=== PATIENT | female | born 1970 | race Caucasian/White ===

== ENCOUNTER 2016-07-29 21:38 | Observation (INO) | payer SELFPAY ==
[2016-07-29] MEDS ORDERED: MORPHINE SULFATE 5 MG/ML PFS IVP ONE ×2 (21:44→23:56)
[2016-07-29] MEDS ORDERED: 0.9 % SODIUM CHLORIDE 1000ML 1,000 ML IV SCH (21:45)
--- NOTE | 2016-07-29 21:48 | Emergency Department Record ---
History of Present Illness - General Chief Complaint: Chest Pain Stated Complaint: CHEST PAIN Time Seen by Provider: 07/29/16 21:44 Source: Patient Mode of Arrival: Wheelchair Limitations: No limitations - History of Present Illness Initial Comments: 46 yo female presents to ED with a CC of sudden onset left sided chest pain radiating down her LUE. Patient reports that her symptoms came on at rest, denies history of previous symptoms. Patient denies fevers, chills, cough, or recent illness. Patient denies health problems at her baseline, but nuno report she is a current smoker and reports family history CT 40's (Aunt). Patient received (2) full strength ASA prior to arrival. MD Complaint: Chest pain Onset/Timin -: Minutes(s) Onset: During rest Pain Location: Substernal, Left chest Pain Radiation: LUE Severity: Moderate Consistency: Constant Improves With: Nothing Worsens With: Nothing Treatments Prior to Arrival: Aspirin - Related Data On Oral Contraceptives: No Home Medications Medication Instructions Recorded Confirmed Last Taken No Home Med [NO HOME MEDS] 07/29/16 07/29/16 Unknown Allergies Allergy/AdvReac Type Severity Reaction Status Date / Time No Known Drug Allergies Allergy Verified 07/29/16 21:45 Review of Systems Constitutional: Denies: Chills, Fever, Malaise, Night sweats Eyes: Denies: Eye discharge, Eye pain ENT: Denies: Congestion, Ear pain, Epistaxis Respiratory: Denies: Cough, Dyspnea Cardiovascular: Reports: Chest pain. Denies: Dyspnea on exertion, Palpitations Endocrine: Denies: Fatigue, Heat or cold intolerance Gastrointestinal: Denies: Abdominal pain, Nausea, Vomiting Genitourinary: Denies: Dysuria, Frequency, Hematuria Musculoskeletal: Denies: Arthralgia, Back pain, Gout, Joint swelling Skin: Denies: Bruising, Change in color, Rash Neurological: Denies: Abnormal gait, Confusion, Headache, Seizure Psychiatric: Denies: Anxiety, Auditory hallucinations Hematological/Lymphatic: Denies: Anemia Physical Exam - General General Appearance: Alert, Oriented x3, Cooperative, Moderate distress Limitations: No limitations - Head Head exam: Atraumatic, Normocephalic, Normal inspection Head exam detail: negative: Abrasion, Contusion, Rai's sign, General tenderness, Hematoma, Laceration - Eye Eye exam: Normal appearance. negative: Conjunctival injection, Periorbital swelling, Periorbital tenderness, Scleral icterus - ENT Ear exam: negative: Auricular hematoma, Auricular trauma Nasal Exam: negative: Active bleeding, Discharge, Dried blood, Foreign body Mouth exam: negative: Drooling, Laceration, Muffled voice, Tongue elevation - Neck Neck exam: Normal inspection. negative: Meningismus, Tenderness - Respiratory Respiratory exam: Normal lung sounds bilaterally. negative: Respiratory distress, Rhonchi, Stridor, Wheezes - Cardiovascular Cardiovascular Exam: Regular rate, Normal rhythm, Normal heart sounds - GI/Abdominal GI/Abdominal exam: Soft. negative: Rebound, Rigid, Tenderness - Rectal Rectal exam: Deferred - exam: Deferred - Extremities Extremities exam: Normal inspection. negative: Calf tenderness, Pedal edema, Tenderness - Back Back exam: Reports: Normal inspection. Denies: CVA tenderness (R), CVA tenderness (L) - Neurological Neurological exam: Alert, Normal gait, Oriented X3 - Psychiatric Psychiatric exam: Normal affect, Normal mood - Skin Skin exam: Normal color. negative: Abrasion Type of lesion: negative: abrasion Course - Reevaluation(s) Reevaluation #1: 07/29/16 21:48 EKG: NSR 60 Normal axis, normal intervals No acute ST-T wave changes Reevaluation #2: 07/29/16 22:04 repeat EKG: NSR 70 Normal axis, normal intervals No acute ST-T wave changes Reevaluation #3: 07/29/16 22:27 Labs reviewed, WBC 17.7, labs are otherwise grossly unremarkable for an acute process. Patient's pain was doiwn to 5/10 after 3rd Niotro, Morphine given with pain improvement to 2/10. Reevaluation #4: 07/29/16 22:35 CXR: No acute process. Reevaluation #5: 07/29/16 22:57 EKG #3: NSR 57 Normal axis, normal intervals No acute ST-T wave changes are present. 23:55 Repeat Troponin ordered from the ED, repeat order for Morphine ordered for pain symptoms. 00:40 Repeat Troponin is negative for myocardial damage. Patient sent to CT for for PE evaluation. 1:26 CTA Chest negative for PE/Dissection. Will admit for further cardiac evaluation. 6:55 AM Case was discussed with Dr. Oliveira, will accept admission. 07/29/16 23:55 07/30/16 00:40 07/30/16 01:26 07/30/16 06:49 Medical Decision Making - Lab Data Result diagrams: 07/29/16 21:50 07/29/16 21:50 Disposition Disposition: Admit Clinical Impression: Chest pain Qualifiers: Chest pain type: unspecified Qualified Code(s): R07.9 - Chest pain, unspecified Disposition: Still a Patient at [facility] Decision to Admit: Admit from ER Decision to Admit Date: 07/30/16 Decision to Admit Time: 01: Condition: (1) Good Time of Disposition: 01:28
[2016-07-29 21:55] LABS: BASO % 0.3 % (0-6); EOS % 1.9 % (0-6); GRAN % 60.1 % (47-80); HEMATOCRIT 38.3 % (35.0-47.0); HEMOGLOBIN 12.8 gm/dl (11.6-16.0); LYMPH % 30.3 % (16-45); MEAN CELL VOLUME 93.6 fl (81-97); MEAN CORPUSCULAR HEMOGLOBIN 31.3 pg (27-33); MEAN CORPUSCULAR HGB CONC 33.4 g/dl (32-36); MEAN PLATELET VOLUME 10.4 fl (7.4-10.4); MONO % 7.4 % (0-9); PLATELET COUNT 284 K/uL (130-400); RED BLOOD COUNT 4.09 M/uL (3.80-5.40); RED CELL DISTRIBUTION WIDTH 14.9 % (11.5-14.5); WHITE BLOOD COUNT W/O DIFF 17.7 K/uL (4.2-12.2)
[2016-07-29] MEDS: NITROGLYCERIN 0.4MG SL TABLET #25 BTL SL PRN ×3 (21:59→22:13)
[2016-07-29 22:05] LABS: ALB/GLOB RATIO 1.4 (1.1-1.8); ALBUMIN 4.2 gm/dL (3.5-5.0); ALKALINE PHOSPHATASE 85 U/L (38-126); ALT/SGPT 24 U/L (9-52); ANION GAP 12.8 (7-16); AST/SGOT 21 U/L (14-36); BILIRUBIN,TOTAL 0.15 mg/dL (0.2-1.3); BLOOD UREA NITROGEN 11 mg/dL (7-17); CARBON DIOXIDE 23.2 mmol/L (22-30); CREATINE PHOSPHOKINASE 164 U/L (30-135); CREATININE 0.7 mg/dL (0.52-1.04); EST GLOMERULAR FILTRATION RATE > 60 ml/min; GLUCOSE,RANDOM 93 mg/dL (70-110); TOTAL PROTEIN 7.1 gm/dL (6.3-8.2)
[2016-07-29 22:10] LABS: CKMB < 1.0 ng/mL (0-4.3); TROPONIN I < 0.050 ng/mL (0.0-0.4)
[2016-07-29] MEDS ORDERED: KETOROLAC 30 MG/ML VIAL IVP ONE (23:18)
[2016-07-30] MEDS ORDERED: NITROGLYCERIN/D5W 50 MG in DEXTROSE 5 % IN WATER 1 BAG IV SCH ×12 (00:15→09:46)
[2016-07-30] MEDS ORDERED: 0.9 % SODIUM CHLORIDE 1000ML 1,000 ML IV PRN (02:27)
[2016-07-30] MEDS ORDERED: KETOROLAC 30 MG/ML VIAL IVP ONE (07:55)
[2016-07-30] MEDS ORDERED: ACETAMINOPHEN 500 MG TABLET PO PRN (07:56)
[2016-07-30] MEDS ORDERED: HYDROCODONE/APAP 5/325MG TABLET PO PRN (07:57)
--- NOTE | 2016-07-30 10:15 | History and Physical Report ---
CHIEF COMPLAINT: Sharp chest pain on the left side of her chest. She denies any radiation into the arm or neck. HISTORY OF PRESENT ILLNESS: She stated that the chest pain started at 9:30 p.m. last night and was very severe. She took two aspirin at home and came to the emergency department. She was evaluated by Dr. Sevilla who started her on nitroglycerin sublingual times three which did not seem to help the pain according to the patient. The morphine seemed to work better for her pain than the nitroglycerin. She was placed on a nitroglycerin drip and was admitted to the hospital for serial cardiac enzymes and serial EKGs. The EKG, in looking at it last night, showed no acute ST T-wave changes. The EKG this morning again showed no acute ST T-wave changes. There was a CT angiogram of the chest to rule out pulmonary embolus. There was no evidence of a pulmonary embolus. No aortic dissection or aneurysm. She states that the pain came on while watching television. Nothing seemed to make it better or worse. It was severe , a 10, when she came to the emergency room. Currently her pain is at a 2. She denies eating anything greasy or fatty. She had dinner at about 4:00 p.m. She is under stress with her significant other. She started crying when I asked her about stress, and she admitted to having problems with her significant other. She did not want to talk about it. PAST MEDICAL HISTORY: Negative. PAST SURGICAL HISTORY: Negative. The patient states that she has not seen a doctor in 10 years. Her last doctor was in [place], and she moved from [place] to [place] in 2006. MEDICATIONS ON ADMISSION: She did admit to nursing that she smoked a heavy amount of marijuana. No home medications recorded. She denies taking any medication. She occasionally uses ibuprofen two or three tablets p.r.n. ALLERGIES: No known allergies. FAMILY/PSYCHOSOCIAL HISTORY: She smokes one pack of cigarettes per day. I advised her to stop smoking. She denies any alcohol or drug use besides marijuana. She actually says she uses a fair amount of marijuana. She had an aunt who had a heart problem. REVIEW OF SYSTEMS: HEENT: She had a cold two weeks ago, but that has resolved. She has an occasional cough and some wheezing when she coughs. Cardiovascular: See the Chief Complaint. She does have chest pain, sharp in nature, in the left chest area. Respiratory: She denies being short of breath, but she smokes one pack of cigarettes per day. When she coughed while I was examining her, she had some wheezing with the cough. Gastrointestinal: No nausea, vomiting, diarrhea, black stools, or bloody stools. Genitourinary: No dysuria, hematuria, frequency, or burning on urination. 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 She has had back problems in the past, but that seems to have resolved with her new job. It is the lower back area, mostly muscular in nature. Neurologic: No cerebrovascular accident, paralysis, or paraesthesias. Gynecologic: She has had nocturia times one for years. She has not had an abnormal mammogram or abnormal pap ever, but she has not seen a doctor in 10 years. Endocrine: No diabetes or thyroid disease. No change in weight, polyuria, or polydipsia. Integument: No rash, ulcers, changing moles, or yellow skin. PHYSICAL EXAMINATION: General: Height is 5 feet. Weight is 140 pounds. Vital Signs: Temperature is 98.5, pulse is 65, blood pressure is 111/69, respiratory rate is 14, pulse oximetry is 99% on room air. HEENT: Pupils are equal, round, and reactive to light and accommodation. Extraocular muscles are intact. The throat is clear. The nose is clear. The tympanic membranes are cortes. Neck: The neck is supple. No jugular venous distension. No hepatojugular reflex. No carotid bruit. The thyroid is smooth. Cardiovascular: Regular rate and rhythm without murmurs, clicks, rubs, or gallops. Respiratory: She has a little bit of a wheeze when she takes a deep breath. She has a cough with a deep breath. She states that this is a smoker's cough. Abdomen: Soft and nontender. No hepatosplenomegaly. No masses. No tenderness. Bowel sounds are active. No bruit. Extremities: No pitting edema. No cyanosis. No clubbing. Full range of motion. Peripheral pulses are good. Breasts, Gynecological, and Rectal Examinations: Deferred. Neurological Examination: Cranial nerves II through XII are intact. No gross defect. Sensation is normal. Strength is normal. Deep tendon reflexes are equal bilaterally. Babinski is negative. Mental Status: Alert and oriented times three. IMPRESSIONS: 1. Sharp left-sided chest pain. 2. Nitroglycerin drip is currently on. Will titrate off. She has a headache from that. 3. Rule out atypical chest pain. Two sets of troponins were negative. 4. Rule out musculoskeletal chest pain. 5. Early chronic obstructive pulmonary disease with a wheezy type cough. PLAN: Cardiology consult with Dr. Hernandez. Will also start Toradol and [place] and titrate off the nitroglycerin drip and convert to oral pain medication versus intravenous morphine. Armin Oliveira D.O. Date Time JOB NUMBER: [id number] MTDD
--- NOTE | 2016-07-30 15:56 | Discharge Note ---
Discharge Note - Date Date of Discharge Note: 07/30/16 Disposition: Home, Self-Care Condition: (1) Good Additional Instructions: follow up with Dr. Oliveira in 2 weeks Prescriptions: Naproxen [Naprosyn] 500 mg PO Q12H #30 tab.dr Forms: Patient Portal Access Activity at Discharge: Increase Activity as Tolerated
--- NOTE | 2016-07-30 18:15 | Discharge Summary ---
DATE OF DISCHARGE: 07/30/2016. DISCHARGE DIAGNOSES: 1. Chest pain. 2. Musculoskeletal chest pain. 3. Myocardial infarction ruled out. No significant coronary artery disease seen by stress testing. 4. Early chronic obstructive pulmonary disease. 5. Tobacco use disorder. ATTENDING PHYSICIAN: Armin Oliveira D.O. REASON FOR HOSPITALIZATION: This 46-year-old female developed sharp left-sided chest pain while watching television. She came to the emergency department. She took two aspirin at home and nitroglycerin times three sublingual. Nitroglycerin drip. Dr. Sevilla saw her in the emergency department. Cardiac enzymes were negative. EKGs were negative. She had a stress test with Dr. David lucio and a cardiology consult. SIGNIFICANT FINDINGS: LABORATORY DATA: The troponin-I was negative at 0.05. This was a new troponin test. CK total was 164. Bilirubin was 0.15 which is low. White count was 17, 700, hemoglobin was 12.8. DIAGNOSTIC DATA: A CT angiogram was negative for a pulmonary embolus, dissection, or aneurysm. The chest x-ray was negative. EKG showed no acute changes. Normal sinus rhythm. THERAPY PROVIDED: The patient was given intravenous fluids, nitroglycerin drip , and morphine. HOSPITAL COURSE: The patient improved, except she did still have some sharp chest pain and also a headache from the nitroglycerin drip. CONDITION AT DISCHARGE: Much improved. DISCHARGE INSTRUCTIONS: Follow up with Dr. Oliveira in two weeks or sooner if any problems. Naprosyn 500 mg b.i.d. Heat to the chest. Activity as tolerated. Armin Oliveira D.O. Date Time JOB NUMBER: [id number] MTDD
--- NOTE | 2016-07-31 15:30 | Medical Records Consult ---
DATE OF CONSULTATION: 07/30/16 HISTORY: Eli Oneill is a 46-year-old female with no previous cardiac history. She does not take any medication. She does give a history of trying a new batch of marijuana on the day of admission to the hospital. She had sudden severe left-sided chest discomfort, which lasted about ten minutes. She states it was 10 out of 10. She drove herself to the Emergency Room at [facility]. The resting electrocardiogram was completely normal. All enzymes were negative including troponin and CPK. She was given sublingual Nitroglycerine without relief of the discomfort. The Nitroglycerine did cause her to have a headache. She was seen by myself the following day. It was obvious that the chest discomfort was noncardiac based on clinical history, enzymes, and electrocardiogram. I did place her on the treadmill and she was able to exercise to a high level with appropriate heart rate and blood pressure response. She had no symptoms. No ST or T-wave changes. Based on this, her chest discomfort is noncardiac. There is no evidence of cardiac-induced ischemia. She is okay for discharge. Further history has been well-documented by Dr. Oliveira. PHYSICAL EXAMINATION: GENERAL: A well-nourished, well-hydrated female in no acute distress. LUNGS: Clear to auscultation in all listening posts. HEART: Heart sounds were clear. First and second sounds normal. No S3. No S4. She had no murmurs. ABDOMEN: Soft without masses. Good peripheral pulses. No evidence of peripheral edema. IMPRESSION: PRECORDIAL DISCOMFORT, NONCARDIAC IN ETIOLOGY. RECOMMENDATION: Based on the history, the physical, the enzymes, and her treadmill exercise test, the patient is safe for discharge. Davin Hernandez D.O. Date & Time JOB NUMBER: [id number] MTDD
== END 2016-07-30 16:20 | disposition home or self-care (01) ==
LOC: ER 21:38 → MEDSURG 07-30 01:58
PROVIDERS: ADMIT Emergency Medicine; ATTEND Emergency Medicine
DX: R07.9 Chest pain, unspecified (principal); J44.9 Chronic obstructive pulmonary disease, unspecified; F17.210 Nicotine dependence, cigarettes, uncomplicated
CPT/HCPCS: 99285 ×2; 96374; 96375; 82550; 85025; 82553; 84484 ×2; 80053; 71010; 71275; 94760; 93005 ×2; 93017; 93010; G0378; Q9967; J1885 ×2; J2270 ×2; 99220; J7030

== ENCOUNTER 2019-01-20 07:23 | Emergency (ER) | payer SELFPAY ==
[2019-01-20] MEDS ORDERED: 0.9 % SODIUM CHLORIDE 1,000 ML BAG IV ONE (07:55)
[2019-01-20] MEDS ORDERED: KETOROLAC 30 MG/ML VIAL IVP ONE (07:55)
[2019-01-20 07:59] LABS: URINE APPEARANCE CLEAR; URINE BILIRUBIN NEGATIVE (NEGATIVE); URINE BLOOD NEGATIVE (NEGATIVE); URINE COLOR YELLOW; URINE GLUCOSE (UA) NEGATIVE (NEGATIVE); URINE KETONE NEGATIVE (NEGATIVE); URINE LEUKOCYTE ESTERASE NEGATIVE (NEGATIVE); URINE NITRITE NEGATIVE (NEGATIVE); URINE PROTEIN NEGATIVE (NEGATIVE); URINE UROBILINOGEN 0.2 E.U./dL (0.20 - 1.00)
[2019-01-20 08:23] LABS: ABSOLUTE NEUTROPHIL COUNT 8.85; BASO % 0.5 % (0-6); EOS % 0.7 % (0-6); GRAN % 74.1 % (47-80); HEMATOCRIT 45.8 % (35.0-47.0); HEMOGLOBIN 15.2 gm/dl (11.6-16.0); LYMPH % 19.7 % (16-45); MEAN CELL VOLUME 94.8 fl (81-97); MEAN CORPUSCULAR HEMOGLOBIN 31.5 pg (27-33); MEAN CORPUSCULAR HGB CONC 33.2 g/dl (32-36); MEAN PLATELET VOLUME 11.2 fl (7.4-10.4); PLATELET COUNT 339 K/uL (130-400); RED BLOOD COUNT 4.83 M/uL (3.80-5.40); RED CELL DISTRIBUTION WIDTH 13.7 % (11.5-14.5)
[2019-01-20] MEDS ORDERED: ORPHENADRINE CITRATE 60MG/2ML VIAL IM ONE (08:29)
--- NOTE | 2019-01-20 08:33 | Emergency Department Record ---
History of Present Illness - General Chief Complaint: Back Pain/Injury Stated Complaint: BACK PAIN Time Seen by Provider: 01/20/19 07:46 Source: Patient Mode of Arrival: Ambulatory Limitations: No limitations - History of Present Illness Initial Comments: pt has had a crampy feeling in her l flank for 2 days. it is constant and made worse by movement. no problems w urination Complaint: Back pain Onset/Timin -: Days(s) Similar Symptoms Previously: No Place: Home Severity: Severe Severity scale (1-10): 10 Consistency: Constant Context: Unknown Associated Symptoms: Denies other symptoms - Related Data Home Medications Medication Instructions Recorded Confirmed Last Taken Ibuprofen [Motrin 400Mg] 400 mg PO Q8H PRN 01/20/19 01/20/19 01/19/19 Previous Rx's Medication Instructions Recorded Cyclobenzaprine HCl [Flexeril] 10 mg PO TID #10 tablet 01/20/19 Hydrocodone/Acetaminophen [[place] 1 each PO Q6HR #7 tablet 01/20/19 5-325 Tablet] Ibuprofen [Motrin] 800 mg PO Q8H PRN #20 tab 01/20/19 Allergies Allergy/AdvReac Type Severity Reaction Status Date / Time No Known Drug Allergies Allergy Verified 07/29/16 21:45 Travel Screening - Travel/Exposure Within Last 30 Days Have you traveled within the last 30 days?: Yes Location Detail:: [place], [place] - Travel/Exposure Within Last Year Have you traveled outside the [place] in the last year?: No - Additonal Travel Details Have you been exposed to anyone with a communicable illness?: No - Travel Symptoms Symptom Screening: None Review of Systems Reviewed: No additional complaints except as noted below Constitutional: Reports: As per HPI. Denies: Chills, Fever, Malaise, Night sweats, Weakness, Weight change Eyes: Reports: As per HPI. Denies: Eye discharge, Eye pain, Photophobia, Vision change ENT: Reports: As per HPI. Denies: Congestion, Dental pain, Ear pain, Epistaxis, Hearing loss, Throat pain Respiratory: Reports: As per HPI. Denies: Cough, Dyspnea, Hemoptysis, Stridor, Wheezes Cardiovascular: Reports: As per HPI. Denies: Arrhythmia, Chest pain, Dyspnea on exertion, Edema, Murmurs, Orthopnea, Palpitations, Paroxysmal nocturnal dyspnea, Rheumatic Fever, Syncope Endocrine: Reports: As per HPI. Denies: Fatigue, Heat or cold intolerance, Polydipsia, Polyuria Gastrointestinal: Reports: As per HPI. Denies: Abdominal pain, Constipation, Diarrhea, Hematemesis, Hematochezia, Melena, Nausea, Vomiting Genitourinary: Reports: As per HPI. Denies: Abnormal menses, Discharge, Dyspareunia, Dysuria, Frequency, Hematuria, Incontinence, Retention, Urgency Musculoskeletal: Reports: As per HPI, Back pain. Denies: Arthralgia, Gout, Joint swelling, Myalgia, Neck pain Skin: Reports: As per HPI. Denies: Bruising, Change in color, Change in hair/nails, Lesions, Pruritus, Rash Neurological: Reports: As per HPI. Denies: Abnormal gait, Confusion, Headache, Numbness, Paresthesias, Seizure, Tingling, Tremors, Vertigo, Weakness Psychiatric: Reports: As per HPI. Denies: Anxiety, Auditory hallucinations, Depression, Homicidal thoughts, Suicidal thoughts, Visual hallucinations Hematological/Lymphatic: Reports: As per HPI. Denies: Anemia, Blood Clots, Easy bleeding, Easy bruising, Swollen glands Past Medical History - SOCIAL HISTORY Smoking Status: Current some day smoker Alcohol Use: None Drug Use: None - RESPIRATORY Hx Respiratory Disorders: No - CARDIOVASCULAR Hx Cardio Disorders: No - NEURO Hx Neuro Disorders: No - GI Hx GI Disorders: No - Hx Genitourinary Disorders: No - ENDOCRINE Hx Endocrine Disorders: No - MUSCULOSKELETAL Hx Musculoskeletal Disorders: Yes Comment:: muscle cramps - PSYCH Hx Psych Problems: No - HEMATOLOGY/ONCOLOGY Hx Hematology/Oncology Disorders: No Family Medical History Any Significant Family History?: No Physical Exam - General General Appearance: Alert, Oriented x3, Cooperative, Mild distress - Head Head exam: Normal inspection - Eye Eye exam: Normal appearance, PERRL, EOMI Pupils: Normal accommodation - ENT ENT exam: Normal exam, Mucous membranes moist, Normal external ear exam, Normal orophraynx Ear exam: Normal external inspection. negative: External canal tenderness Nasal Exam: Normal inspection. negative: Discharge, Sinus tenderness Mouth exam: Normal external inspection, Tongue normal Teeth exam: Normal inspection. negative: Dental caries Throat exam: Normal inspection. negative: Tonsillar erythema, Tonsillar exudate - Neck Neck exam: Normal inspection, Full ROM. negative: Tenderness - Respiratory Respiratory exam: Normal lung sounds bilaterally. negative: Respiratory distress - Cardiovascular Cardiovascular Exam: Normal rhythm, Normal heart sounds, Tachycardia - GI/Abdominal GI/Abdominal exam: Soft, Normal bowel sounds. negative: Tenderness - Rectal Rectal exam: Deferred - exam: Deferred - Extremities Extremities exam: Normal inspection, Full ROM, Normal capillary refill. negative: Tenderness - Back Back exam: Reports: CVA tenderness (L), Full ROM, Tenderness. Denies: Muscle spasm, Rash noted - Neurological Neurological exam: Alert, CN II-XII intact, Normal gait, Oriented X3 - Psychiatric Psychiatric exam: Normal affect, Normal mood - Skin Skin exam: Dry, Intact, Normal color, Warm Course Vital Signs 01/20/19 07:28 Temperature 98.6 F Pulse Rate 119 H Respiratory 20 Rate Blood Pressure 155/112 Pulse Ox 98 - Reevaluation(s) Reevaluation #1: 01/20/19 10:54 ct showed lesion on kidney, us showed the same w recommendations of further Medical Decision Making - Lab Data Result diagrams: 01/20/19 07:39 01/20/19 07:39 Lab Results 01/20/19 01/20/19 01/20/19 Range/Units 07:39 Unknown Unknown WBC 12.0 (4.2-12.2) K/uL RBC 4.83 (3.80-5.40) M/uL Hgb 15.2 (11.6-16.0) gm/dl Hct 45.8 (35.0-47.0) % MCV 94.8 (81-97) fl MCH 31.5 (27-33) pg MCHC 33.2 (32-36) g/dl RDW 13.7 (11.5-14.5) % Plt Count 339 (130-400) K/uL MPV 11.2 H (7.4-10.4) fl Gran % 74.1 (47-80) % Lymphocytes % 19.7 (16-45) % Monocytes % 5.0 (0-9) % Eosinophils % 0.7 (0-6) % Basophils % 0.5 (0-6) % Absolute Neutrophils 8.85 Urine Color Yellow Urine Appearance Clear Urine pH 6.5 (5.0-8.0) Ur Specific [place] <= 1.005 (1.002-1.030) Urine Protein Negative (NEGATIVE) Urine Glucose (UA) Negative (NEGATIVE) Urine Ketones Negative (NEGATIVE) Urine Blood Negative (NEGATIVE) Urine Nitrite Negative (NEGATIVE) Urine Bilirubin Negative (NEGATIVE) Urine Urobilinogen 0.2 (0.20 - 1.00) E.U./dL Ur Leukocyte Esterase Negative (NEGATIVE) Urine HCG, Qual Negative (NEGATIVE) Disposition Disposition: Discharge Clinical Impression: Left flank pain, Right kidney mass Disposition: Home, Self-Care Condition: (1) Good Instructions: Flank Pain (ED), Kidney Cyst (ED) Additional Instructions: follow up with family doctor. return sooner if worse. have repeat ultra sound in [address] with contrast to further assess r kidney mass. do this without fail to check to see if its a cyst and to rule out malignancy Prescriptions: Hydrocodone/Acetaminophen [[place] 5-325 Tablet] 1 each PO Q6HR #7 tablet Cyclobenzaprine HCl [Flexeril] 10 mg PO TID #10 tablet Ibuprofen [Motrin] 800 mg PO Q8H PRN #20 tab PRN Reason: Pain - Mod To Severe (5-10) Forms: Patient Portal Access Quality - Quality Measures Quality Measures: N/A - Blood Pressure Screening Does Patient Have Any of the Following: No Blood Pressure Classification: Hypertensive Reading Systolic Measurement: 155 Diastolic Measurement: 112 Screening for High Blood Pressure: < First Hypertensive BP, F/U Documented > [G8950] First Hypertensive Follow-up Interventions: Follow-up with rescreen GT 1 day and LT 4 weeks.
[2019-01-20] MEDS ORDERED: HYDROMORPHONE HCL 2 MG/ML VIAL IVP ONE (09:26)
[2019-01-20] MEDS ORDERED: ONDANSETRON HCL IV 4 MG/2 ML VIAL IVP ONE (09:26)
[2019-01-20 11:05] LABS: ALBUMIN 4.5 g/dL (4.0-5.0); ALKALINE PHOSPHATASE 121 U/L (35-104); ALT/SGPT 12 U/L (<33); AST/SGOT 21 U/L (10.0-35.0); BLOOD UREA NITROGEN 9 mg/dL (6-20); CREATININE 0.7 mg/dL (0.5-0.9); EST GLOMERULAR FILTRATION RATE > 60 mL/min; GLUCOSE,RANDOM 107 mg/dL (74-109)
[2019-01-20 11:21] LABS: ALB/GLOB RATIO 1.4 (1.1-1.8); TOTAL PROTEIN 7.7 g/dL (6.6-8.7)
--- NOTE | 2019-01-21 08:58 | CT SCAN REPORT ---
EXAM: CT OF THE ABDOMEN AND PELVIS WITHOUT CONTRAST HISTORY: LEFT FLANK PAIN FOR ONE DAY. NO KNOWN INJURY. NO KIDNEY STONE HISTORY. TECHNIQUE: Thin collimation helical CT examination of the abdomen and pelvis was performed without oral or intravenous contrast administration. Lack of oral and IV contrast utilization limits evaluation of the bowel and solid viscera respectively. Comparison: CT angiogram of the chest dated 07/30/16. FINDINGS: There is minimal dependent atelectasis within the lung bases. The lung bases are otherwise clear. No pleural or pericardial effusion. A calcified granuloma is again noted within the anterior superior aspect of the liver near the junction of the right and left lobes. The liver is otherwise normal in appearance. The gallbladder is unremarkable and the biliary tree is nondilated. The spleen, pancreas, and right adrenal gland remain normal in appearance. There is a small left adrenal gland mass redemonstrated. This measures 10 x 10 mm. It has a density of -2 Hounsfield units and is consistent with a lipid rich adenoma. It has not significantly changed in size in the interval. The kidneys are normal in size, position and are smoothly marginated. Evaluation of the mid left kidney is, however, slightly limited by motion. No nephrolithiasis nor definite renal mass. The renal collecting systems are not dilated. No definite calcification noted along the expected course of either ureter. Several small calcifications are noted inferiorly in the pelvis, likely vascular in origin. No intrinsic urinary bladder abnormality. No intraabdominal nor retroperitoneal lymphadenopathy. There is mild atherosclerosis without aneurysmal dilatation of the abdominal aorta nor iliac arteries. No pelvic mass, lymphadenopathy, or suspicious free pelvic fluid. No gross bowel dilatation nor bowel wall thickening. The appendix is visualized and normal in appearance. There is mild diverticulosis of the left colon without evidence of acute diverticulitis. No free intraperitoneal air. The abdominal wall is intact. No lytic or blastic bone lesion. There are degenerative changes scattered throughout the visualized spine. There is levoconvex scoliosis centered at the L3-L4 level. IMPRESSION: 1. NO CONVINCING CT EVIDENCE OF AN ACUTE INTRAABDOMINAL NOR INTRAPELVIC PROCESS. NO NEPHROLITHIASIS NOR OBSTRUCTIVE UROPATHY. 2. MILD DIVERTICULOSIS OF THE LEFT COLON WITHOUT EVIDENCE OF DIVERTICULITIS. 3. NORMAL APPENDIX. 4. SMALL LEFT ADRENAL ADENOMA REDEMONSTRATED UNCHANGED. CALCIFIED GRANULOMA REDEMONSTRATED WITHIN THE LIVER. 5. NOT MENTIONED ABOVE IS A POSSIBLE HYPODENSE MASS WITHIN THE ANTEROMEDIAL MID RIGHT KIDNEY VERSUS ARTIFACT MEASURING 1.4 X 1.9 CM. THIS DOES NOT MEET STRICT DENSITY CRITERIA FOR A SIMPLE CYST. IF CLINICALLY WARRANTED THIS COULD BE FURTHER EVALUATED WITH RENAL ULTRASOUND EXAMINATION. JOB NUMBER: [id number] [facility]
--- NOTE | 2019-01-21 09:26 | ULTRASOUND REPORT ---
EXAM: ULTRASOUND OF THE ABDOMEN COMPLETE HISTORY: LEFT FLANK PAIN. POSSIBLE RIGHT RENAL MASS DEMONSTRATED ON SAME DAY CT ABDOMEN EXAMINATION. TECHNIQUE: Routine ultrasound examination of the abdomen was performed. Comparison: CT of the abdomen and pelvis without contrast dated 01/20/19 at 08:13. FINDINGS: The pancreatic tail is obscured by overlying bowel gas. The remainder of the pancreas is visualized and normal in appearance. Minor diffuse atherosclerosis without aneurysmal dilatation of the abdominal aorta. The intrahepatic IVC is patent. The liver is homogeneous in echotexture. No hepatic mass. No intra nor extrahepatic biliary ductal dilatation with the common hepatic duct measuring 5 mm. The gallbladder is normal in appearance and there is a negative sonographic Barba's sign. The spleen is not enlarged and is homogeneous in echotexture. Screening evaluation of the kidneys does not demonstrate hydronephrosis. Each kidney measures 11 cm in length. There is a relative hypoechoic area demonstrated within the mid to lower right kidney measuring 9 x 14 x 15 mm. This does not meet strict sonographic criteria for a simple cyst. No other focal renal abnormality is identified. IMPRESSION: 1. SUBTLE HYPOECHOIC AREA WITHIN THE MID TO LOWER RIGHT KIDNEY MEASURING 15 MM IN MAXIMUM DIAMETER. THIS IS IN THE GENERAL AREA OF THE HYPODENSITY SEEN ON SAME DAY CT EXAMINATION. IT DOES NOT MEET STRICT SONOGRAPHIC CRITERIA FOR A SIMPLE CYST LIKELY DUE TO BODY HABITUS. MANAGEMENT OPTIONS WOULD INCLUDE SHORT TERM FOLLOW-UP ULTRASOUND EXAMINATION IN 3-6 MONTHS TO CONFIRM STABILITY OR FURTHER EVALUATION WITH PRE AND POST CONTRAST ADMINISTRATION CT OR MRI EXAMINATION ON AN OUTPATIENT BASIS. 2. NO OTHER ABNORMALITY IDENTIFIED. [facility]: [id number] [facility]
== END 2019-01-20 12:06 | disposition home or self-care (01) ==
LOC: ER 07:23
DX: N28.89 Other specified disorders of kidney and ureter (principal); R10.30 Lower abdominal pain, unspecified; M54.9 Dorsalgia, unspecified; F17.210 Nicotine dependence, cigarettes, uncomplicated
CPT/HCPCS: 99284 ×2; 96374; 96372; 96375; 85025; 80053; 81003; 81025; 76700; 74176; J1885; J2405; J1170; J2360; J7030